=== PATIENT | female | born 1950 | race Caucasian/White ===

== ENCOUNTER 2016-05-14 15:46 | Emergency (ER) | payer MEDICAID ==
[2012-06-08 10:15] VITALS: BMI 20.2
== END 2016-05-14 18:22 | disposition home or self-care (01) ==
LOC: D.ER 15:46
DX: S53.402A Unspecified sprain of left elbow, initial encounter (principal); W01.0XXA Fall on same level from slipping, tripping and stumbling without subsequent striking against object, initial encounter; Y93.89 Activity, other specified; Y92.830 Public park as the place of occurrence of the external cause; I25.10 Atherosclerotic heart disease of native coronary artery without angina pectoris; E11.9 Type 2 diabetes mellitus without complications

== ENCOUNTER 2016-09-14 21:45 | Emergency (ER) | payer MEDICAID ==
[2012-06-08 10:15] VITALS: BMI 20.2
== END 2016-09-15 00:23 | disposition home or self-care (01) ==
LOC: D.ER 21:45
DX: R05 Cough (principal); J20.9 Acute bronchitis, unspecified; E11.9 Type 2 diabetes mellitus without complications; I25.10 Atherosclerotic heart disease of native coronary artery without angina pectoris

== ENCOUNTER 2017-01-05 19:30 | Emergency (ER) | payer MEDICAID ==
[2012-06-08 10:15] VITALS: BMI 20.2
== END 2017-01-05 21:30 | disposition home or self-care (01) ==
LOC: D.ER 19:30
DX: H10.31 Unspecified acute conjunctivitis, right eye (principal); E11.9 Type 2 diabetes mellitus without complications

== ENCOUNTER 2019-09-11 10:00 | Outpatient (CLI) | payer MEDICARE, MEDICAID ==
[2012-06-08 10:15] VITALS: BMI 20.2
== END 2019-09-11 11:00 | disposition home or self-care (01) ==
LOC: D.MAMMO 10:00
PROVIDERS: ATTEND Family Medicine
DX: Z12.31 Encounter for screening mammogram for malignant neoplasm of breast (principal)

== ENCOUNTER 2019-12-14 18:36 | Inpatient (IN) | payer MEDICARE, MEDICAID ==
[~2019-12-14] VITALS: Ht 149.9 cm; Wt 80.2 kg
--- NOTE | ~2019-12-14 | EC ---
PATIENT:KYRA TAFOYA DATE OF SERVICE: 12/14/19 SEX: F MEDICAL RECORD: [id number] DATE OF : [birth year] LOCATION:D.M2 D.213 AGE OF PATIENT: 69 ADMISSION DATE: 12/14/19 REFERRING PHYSICIAN: INTERPRETING PHYSICIAN: KAYCE CANALES MD ECHOCARDIOGRAM REPORT ECHO CHARGES 4 ECHO COMPLETE Date: 12/15/19 CLINICAL DIAGNOSIS: AFIB ECHOCARDIOGRAPHIC MEASUREMENTS (adult normal given) AC root (d.<3.7cm) 3.3 cm LV Septum d (<1.2 cm> 1.3 cm Valve Excursion 1.4 cm LV Septum (systole) 1.5 cm Left Atria (s.<4.0cm> 3.0 cm LVPW d(<1.2cm) 1.0 cm RV (d.<2.3cm) 3.4 cm LVPW (sytole) 1.4 cm LV diastole(<5.6CM) 4.2 cm MV E-F(>70mm/sec) cm LV systole 2.2 cm LVOT Diameter 1.6 cm MV exc.(>10mm) 1.0 cm Est.ejection fraction (50-75%) % DOPPLER: LVIT cm/sec A cm/sec E 153.0 cm/sec LA cm/sec RVSP 38 mmHg LVOT 80 cm/sec AOP1/2T m/s Asc. Ao 109 cm/sec RVOT 72 cm/sec RA cm/sec PA 99 cm/sec AV Gradient Peak 4.79 mmHg AV Mean 2.66 mmHg AV Area 1.5 cm MV Gradient Peak 9.35 mmHg MV Mean 3.21 mmHg MV Area cm COMMENTS: Grain Drier: 2 MADINA MCKINNEY Lean Facilitator: 3 Dr. Horta TAPE# PACS Pericardial Effusion N DATE OF SERVICE: 12/16/2019 Adequate 2D, color flow imaging, spectral Doppler, and M-Mode. Mild LVH. LV internal dimensions are normal. Wall motion normal. EF greater than or equal to 55%. Aortic valve is tricuspid. No evidence of stenosis by Doppler interrogation. Left atrium is normal at 3.0 cm. Mitral valve shows no prolapse. Mild MR. Right-sided chambers are grossly normal. Mild TR. TRANSINT:[id number] Voice Confirmation ID: [id number] DOCUMENT ID: [id number] ECHOCARDIOGRAM REPORT [id number] GLOBAL ENGINEERING MANAGER,KYRA CANALES,KAYCE Crockett MD CC: [id number] DICTATION DATE: 12/16/19 1009 LACE SEWER: 12/16/19 1135 ADM IN [place] [id number] [place] [id number]
--- NOTE | ~2019-12-14 | CN ---
PATIENT NAME:KYRA HERNANDEZ MEDICAL RECORD: [id number] : 54 LOCATION:D.Ju[place] D.2135 ADMIT DATE: 12/14/19 ACCOUNT: [id number] CONSULTING PHYSICIAN: KAYCE CANALES MD REFERRING PHYSICIAN: DEL BASURTO MD DATE OF CONSULTATION: 12/15/2019 HISTORY OF PRESENT ILLNESS: A 69-year-old female with a history of diabetes mellitus, hypertension, apparently noncompliant in the past ____ hemoglobin A1c, admitted with fatigue, tiredness, breathlessness, noted to be in AFib with RVR. She has responded nicely to Cardizem drip, attempted to convert post-pause. We are asked to see her concerning her cardiovascular status. PAST MEDICAL HISTORY: Includes: 1. History of hypertension. 2. Diabetes mellitus. 3. Obstructive pulmonary disease. ALLERGIES: PENICILLIN. MEDICATIONS: None currently. SOCIAL HISTORY: Nonsmoker, nondrinker. Takes care of her ADLs. REVIEW OF SYSTEMS: The patient reports easy bruising but reports no swollen glands. The patient reports no fever, no night sweats, no significant weight gain, no significant weight loss. No significant exercise tolerance. The patient reports no dry eyes, no irritation, no vision change. Patient reports no difficulty hearing and no ear pain. Patient reports no frequent nose bleeds or nose and sinus problems. Patient reports on arm pain on exertion. No shortness of breath while lying down. No history of heart murmur. Patient reports no cough, no wheezing or coughing up blood. Patient reports no abdominal pain, no vomiting. Normal appetite. No diarrhea and not vomiting blood. No nausea and no constipation. Patient reports no incontinence. No difficulty urinating. No hematuria. No increased frequency. Patient reports no muscle aches. No weakness, no arthralgias, no back pain. No swelling of the extremities. Patient reports no abnormal mole, no jaundice, no rashes. Reports no loss of consciousness. No weakness and no numbness. No seizures, dizziness, or headaches. The patient reports no depression, no sleep disturbance, feeling safe in a relationship and no alcohol abuse. Patient reports on fatigue. Reports no runny nose or sinus pressure. No itching, no hives, and no frequent sneezing. PHYSICAL EXAMINATION: GENERAL: Pleasant, in no acute distress, appears stated age. VITAL SIGNS: Blood pressure 118/68, pulse 72 and irregular. HEENT: Normocephalic, atraumatic. NECK: No JVD or bruit. HEART: Irregular, rate is controlled currently. II/ systolic ejection murmur. LUNGS: Fairly good air excursion. ABDOMEN: Soft, nontender. EXTREMITIES: Pulses well preserved, 2+. There is no edema. IMPRESSION: Atrial fibrillation with RVR. We will switch from Cardizem drip to CONSULT REPORT [id number] KYRA HERNANDEZ beta blockade at this point for rate control. Discussed in detail with Dr. Basurto. Given her history of noncompliance in the past, I do not think she is not an ideal candidate for anticoagulation. I discussed this in detail with Ms. Hernandez. Rate is controlled with beta blockade. No contraindication at discharge from my standpoint. TRANSINT:[id number] Voice Confirmation ID: [id number] DOCUMENT ID: [id number] KAYCE CANALES MD CC: [id number] DICTATION DATE: 12/15/19935 STEAM PRESSER: 12/15/19 1223 ADM IN [facility] [address] [id number]
[2019-12-14 19:09] LABS: BASOPHILS 0.1 % (0-2); EOSINOPHILS 0.2 % (0-7); HEMATOCRIT 41.6 % (36.0-48.0); HEMOGLOBIN 13.3 g/dL (12-16); IMMATURE GRANULOCYTES 0.3 % (0-5); LYMPHOCYTES 6.9 % (15-50); MCH 27.1 pg (26.0-34.0); MCV 84.9 fL (80.0-100.0); MONOCYTES 4.1 % (2-11); NEUTROPHILS 88.4 % (40-80); PLATELET COUNT 213 10x3/uL (130-400); RDW 13.4 % (11.5-14.5); WBC 11.1 10x3/uL (4.8-10.8)
[2019-12-14 19:18] LABS: INR 0.94 (0.85-1.17); PROTIME 12.6 SECONDS (11.6-15.0)
[2019-12-14 19:34] LABS: BILIRUBIN NEGATIVE (NEGATIVE); KETONE SMALL mg/dL (NEGATIVE); NITRITE NEGATIVE (NEGATIVE); UROBILINOGEN NORMAL mg/dL (< 2)
[2019-12-14 19:35] LABS: CALC OSMOLALITY 282 mosm/kg (275-300); CALCIUM 9.5 mg/dL (8.5-10.1); CARBON DIOXIDE 28.8 mmol/L (21.0-32.0); CHLORIDE - SERUM 98 mmol/L (98-107); CREATININE - SERUM 1.1 mg/dL (0.6-1.3); POTASSIUM - SERUM 4.6 mmol/L (3.5-5.1); SODIUM 135 mmol/L (136-145); UREA NITROGEN 21 mg/dL (7-18); eGFR NON AFRICAN AMERICAN 52 mL/min (90-120)
[2019-12-14 19:37] LABS: GLUCOSE 286 mg/dL (74-106)
[2019-12-14 19:41] LABS: BACTERIA FEW /HPF (NONE SEEN); WHITE CELLS - URINE 0-5 HPF (0-4)
[2019-12-14 19:51] LABS: ALBUMIN 3.8 g/dL (3.4-5.0); ALKALINE PHOSPHATASE 159 U/L (30-120); ALT (SGPT) 27 U/L (10-68); BILIRUBIN - TOTAL 0.31 mg/dL (0.2-1.3); CKMB 1.3 U/L (0.0-3.6); CREATINE KINASE 57 UL (21-215); PROTEIN - SERUM 7.7 g/dL (6.4-8.2); TROPONIN-I < 0.017 ng/mL (0.000-0.060)
[2019-12-14 20:14] VITALS: BP 119/73
[2019-12-14 20:32] LABS: UDS - AMPHET NEGATIVE QUAL (NEGATIVE); UDS - BARB NEGATIVE QUAL (NEGATIVE); UDS - BENZO NEGATIVE QUAL (NEGATIVE); UDS - COCAINE NEGATIVE QUAL (NEGATIVE); UDS - OPIATE NEGATIVE QUAL (NEGATIVE); UDS - PCP NEGATIVE QUAL (NEGATIVE); UDS - THC NEGATIVE QUAL (NEGATIVE)
--- NOTE | 2019-12-14 20:56 | NUR ---
DILTIAZEM INCREASED FROM 10MG/HR TO 15MG/HR PER ORDER.
[2019-12-14 21:06] VITALS: BP 156/81
[2019-12-14 21:39] VITALS: BP 96/57
--- NOTE | 2019-12-14 22:46 | NUR ---
PT ARRIVED TO ROOM. CONFUSED, POOR HISTORIAN. HR 90'S CAF. CALL LIGHT IN REACH.
[2019-12-14 22:50] VITALS: BP 125/74
[2019-12-15 00:02] VITALS: BP 111/58
[2019-12-15 00:11] VITALS: BP 125/74
[2019-12-15 04:37] VITALS: BP 124/60
[2019-12-15 05:02] LABS: BASOPHILS 0.1 % (0-2); EOSINOPHILS 0.1 % (0-7); HEMOGLOBIN 12.3 g/dL (12-16); IMMATURE GRANULOCYTES 0.8 % (0-5); LYMPHOCYTES 16.9 % (15-50); MCH 26.2 pg (26.0-34.0); MCHC 30.8 g/dL (31.0-37.0); MCV 85.3 fL (80.0-100.0); MEAN PLATELET VOLUME 9.3 fL (7.4-10.4); MONOCYTES 7.8 % (2-11); NEUTROPHILS 74.3 % (40-80); RBC 4.69 10x6/uL (4.00-5.40); RDW 13.4 % (11.5-14.5); WBC 9.1 10x3/uL (4.8-10.8)
[2019-12-15 05:07] LABS: PLATELET COUNT 279 10x3/uL (130-400)
[2019-12-15 05:41] LABS: ALBUMIN 3.2 g/dL (3.4-5.0); ALKALINE PHOSPHATASE 123 U/L (30-120); ALT (SGPT) 22 U/L (10-68); BILIRUBIN - TOTAL 0.24 mg/dL (0.2-1.3); CALCIUM 9.2 mg/dL (8.5-10.1); CARBON DIOXIDE 29.2 mmol/L (21.0-32.0); CHLORIDE - SERUM 102 mmol/L (98-107); CKMB 1.6 U/L (0.0-3.6); CREATINE KINASE 45 UL (21-215); POTASSIUM - SERUM 4.4 mmol/L (3.5-5.1); PROTEIN - SERUM 7.1 g/dL (6.4-8.2); SODIUM 140 mmol/L (136-145); T4 THYROXIN - FREE 1.11 ng/dL (0.76-1.46); THYROID STIMULATING HORMONE 1.72 uIU/mL (0.36-3.74); UREA NITROGEN 24 mg/dL (7-18)
[2019-12-15 05:42] LABS: CALC OSMOLALITY 284 mosm/kg (275-300); CREATININE - SERUM 1.4 mg/dL (0.6-1.3); GLUCOSE 127 mg/dL (74-106); TROPONIN-I < 0.017 ng/mL (0.000-0.060); eGFR NON AFRICAN AMERICAN 40 mL/min (90-120)
--- NOTE | 2019-12-15 07:20 | NUR ---
RECIEVE REPORT. RESTING IN BED WITH EYES CLOSED. CONTROLLED AFIB 64 ON TELEMETRY. CARDIZEM DRIP INFUSING ORDERED. VITALS STABLE. NO SIGNS OF DISTRESS. CONTINUE PLAN OF CARE AND SAFETY PRECAUTIONS.
[2019-12-15 08:02] VITALS: BP 118/68
--- NOTE | 2019-12-15 08:07 | NUR ---
ALERT AND ORIENTED X4. SITTING UP IN BED. CONTROLLED AFIB 54 ON TELEMETRY WITH 4.8 SECOND PAUSE. NOTIFY LEYLA. DRAGAN REESE PER TrungLEYLA VIA TELEPHONE.
--- NOTE | 2019-12-15 09:48 | HP ---
PATIENT: KYRA TAFOYA MEDICAL RECORD: [id number] ACCOUNT: [id number] LOCATION:[address] : [birth year] ADMISSION DATE: 12/14/19 PCP: ALL MARTE MD HISTORY AND PHYSICAL EXAMINATION REASON FOR ADMISSION: Fatigue and fall. HISTORY OF PRESENT ILLNESS: The patient is a 69-year-old female whose family brings her in to see because she has been fatigued for the last several days. She had apparently fallen once or twice in the previous days. She complained of some neck pain and shoulder pain. Denies any nausea or vomiting, has had a cough as well for the last 24 hours. No documented fever, change in taste or smell. She came to the Emergency Room for these reasons. She was found in the ED to have an irregular heart rate, pulse over 130 and irregular. This is apparently a new rhythm for her. She denies history of hypothyroidism. PAST MEDICAL HISTORY: She has had postmenopausal vaginal bleeding with negative endometrial biopsy, COPD, dementia, depression, diabetes mellitus, uncontrolled. She refuses meds. PAST SURGICAL HISTORY: She had cholecystectomy and she had a bowel resection with colostomy takedown and repair. FAMILY HISTORY: Unknown. SOCIAL HISTORY: Remote smoker, does not drink alcohol. MEDICATIONS: To which she is noncompliant about Formin 500 mg b.i.d., lisinopril 5 mg daily. REVIEW OF SYSTEMS: CONSTITUTIONAL: Has been fatigued for 2-3 days without fever. HEENT: No recent visual change, sinus congestion, sore throat or loss of sense of smell or taste. RESPIRATORY: She has had dry cough for the last 2-3 days. Denies hemoptysis or shortness of breath. CARDIAC: Chest pain. GASTROINTESTINAL: She has had no nausea, vomiting, change in stools or blood per rectum. GENITOURINARY: Mild incontinence, no dysuria. GYNECOLOGIC: No vaginal bleeding recently. ENDOCRINE: Denies polyuria, polydipsia, heat or cold intolerance. NEUROLOGIC: Questionable history of stroke. No history of seizures. She has had some memory loss she relates. INTEGUMENT: No rash or itching. PSYCHIATRIC: Denies depress mood. PHYSICAL EXAMINATION: VITAL SIGNS: Heart is 120 and irregular, temperature 99 degrees Fahrenheit orally, respiratory rate 18, blood pressure 136/81 with a sat of 94% on room air. GENERAL: The patient appears older than stated age and she appears fatigued. HEENT: Eyes are clear. Oropharynx unremarkable. NECK: No bruits or masses. CHEST: She has some tenderness in the left trapezius to deep palpation. No HISTORY AND PHYSICAL [id number] KYRA TAFOYA bruising noted. Chest wall is nontender. HEART: Irregular rate without gallop. LUNGS: Clear throughout. ABDOMEN: Soft, obese, and nontender. PELVIC: Deferred. EXTREMITIES: A 1+ bipedal and pretibial edema of the knees bilaterally. SKIN: No bruising appreciated, no icterus. NEUROLOGIC: The patient is oriented to person and place, but not time. She has no obvious motor or sensory deficits. I did not ambulate the patient. LABORATORY DATA: Shows a white count of 11,000 with left shift, H&H is 13 and 41.6 respectively. Sodium is 135, BUN and creatinine are 21 and 1.0, glucose is 286 nonfasting. Lactic acid is 1.9. Liver functions normal. Alkaline phosphatase 159. Cardiac enzymes are negative. INR 0.94. Urine drug screen is negative. Urinalysis shows 3+ protein, small ketones, 5-10 epithelial cells, SARS-COVID RNA is currently pending. IMAGING: Chest x-ray shows no cardiopulmonary disease. CT of the head shows nasal sinuses demonstrating extensive mucosal thickening throughout the maxillary and ethmoid sinuses, but no acute intracranial pathology. Cervical spine CT, no evidence of fracture. The disc spaces are well maintained. There is an indeterminate 2 cm thyroid nodule on the right. EKG shows atrial fibrillation with RVR. ASSESSMENT: 1. New onset atrial fibrillation with rapid ventricular response. 2. Diabetes mellitus, poorly controlled due to noncompliance. 3. Dementia. 4. Thyroid nodule. 5. Azotemia. PLAN: The patient was started on Cardizem drip in 80 and right now is in the 90s. We will check serial cardiac enzymes, thyroid functions, thyroid ultrasound, isolate, COVID-19, rule out. Cardiology will see the patient in the morning. TRANSINT:[id number] Voice Confirmation ID: [id number] DOCUMENT ID: [id number] DEL CORONA MD at 0948 CC: [id number] DICTATION DATE: 12/14/192321 WASHING MACHINE REPAIRER: 12/15/19 0028 ADM IN [facility] [address] [id number]
--- NOTE | 2019-12-15 17:16 | NUR ---
ALERT AND ORIENTED. ASSIST UP TO CHAIR. LINEN CHANGE COMPLETE. SINUS RYTHM 85 ON TELEMETRY. COVID NEGATIVE. ISOLATION REMOVED. CONTINUE PLAN OF CARE AND SAFETY PRECAUTIONS.
--- NOTE | 2019-12-15 19:00 | NUR ---
REPORT RECEIVED, PT CARE ASSUMED. INTRODUCED SELF AND WROTE NAME ON BOARD. PT SITTING UP IN BED, WATCHING TV, AAOX4. X1 ASSIST TO BATHROOM AND BACK TO BED. REQUESTING CLEAN GOWN, PROVIDED. DENIES ANY OTHER NEEDS AT THIS TIME. BED IN LOWEST, SRX2, CALL LIGHT WITHIN REACH. WILL CTM.
[2019-12-15 20:00] VITALS: BP 170/66
[2019-12-16] VITALS: BP 144/68
[2019-12-16 05:29] LABS: BASOPHILS 0.2 % (0-2); EOSINOPHILS 0.7 % (0-7); HEMATOCRIT 37.2 % (36.0-48.0); HEMOGLOBIN 11.3 g/dL (12-16); IMMATURE GRANULOCYTES 0.2 % (0-5); LYMPHOCYTES 19.8 % (15-50); MCH 26.5 pg (26.0-34.0); MCHC 30.4 g/dL (31.0-37.0); MEAN PLATELET VOLUME 9.2 fL (7.4-10.4); NEUTROPHILS 71.1 % (40-80); RBC 4.26 10x6/uL (4.00-5.40); RDW 13.6 % (11.5-14.5)
[2019-12-16 05:53] LABS: ANION GAP 8.9 mmol/L (8-16); CARBON DIOXIDE 28.1 mmol/L (21.0-32.0); CREATININE - SERUM 1.3 mg/dL (0.6-1.3); MCV 87.3 fL (80.0-100.0); PLATELET COUNT 217 10x3/uL (130-400); WBC 5.5 10x3/uL (4.8-10.8)
--- NOTE | 2019-12-16 07:20 | NUR ---
RECIEVE REPORT. ALERT AND ORIENTED X3. ASSIST UP TO RESTROOM AND BACK TO BED. SINUS RYTHM ON TELEMETRY. DENIES ANY OTHER NEEDS. CONTINUE PLAN OF CARE AND SAFETY PRECAUTIONS.
[2019-12-16 10:15] VITALS: BP 110/46
[2019-12-16 13:05] VITALS: BP 125/50
[2019-12-16] MEDS ORDERED: LOPRESSOR25 MG PO (13:39)
[2019-12-16 14:10] VITALS: Ht 149.9 cm; Wt 80.2 kg
--- NOTE | 2019-12-16 16:02 | MORECARE ---
CASE MANAGEMENT DISCHARGE SUMMARY PATIENT: KYRA TAFOYA UNIT: [id number] ADM DATE: 12/14/19 AGE: 69 : 52 SEX: F ROOM/BED: D.5879 AUTHOR: MELISSA WALKER PHYSICIAN: REFERRING PHYSICIAN: DEL CORONA MD DATE OF SERVICE: 12/16/19 Discharge Plan Patient Name: KYRA TAFOYA Facility: [facility]:[place] : 1950 Planned Disposition: Home Anticipated Discharge Date: Discharge Date: Expected LOS: 0 Initial Reviewer: [email or web address] Initial Review Date: 12/15/2019 Generated: 12/16/19 5:02 pm DCPIA - Discharge Planning Initial Assessment Updated by [email or web address]: Radha Pendleton on 12/16/19 4:00 pm * Is the patient Alert and Oriented? Yes * How many steps to enter\exit or inside your home? 0/0 * PCP ROSANNA * Pharmacy [facility] * Preadmission Environment Home with Family * ADLs Independent * Equipment None * List name and contact numbers for known caregivers / representatives who currently or will assist patient after discharge: SOURAV CARRIZALES [phone] * Verbal permission to speak to the caregivers and representatives has been obtained from the patient. Yes * Community resources currently utilized None * Additional services required to return to the preadmission environment? Yes * Can the patient safely return to the preadmission environment? Yes * Has this patient been hospitalized within the prior 30 days at any hospital? No External Providers External Provider: Cristobal Next Contact Date: Service Request Date: Service Type: Resolution: Reviewer: Comments: Coverage Notice Reviewer: [email or web address] Nikiat Pendleton Notice Issued Date-Time: 12/16/2019 14:15 Notice Type: Patient Choice Letter Notice Delivered To: Patient Relationship to Patient: Grain Grader Name: Delivery Method: HAND - Hand Delivered Roxana Days: Prior Verbal Notification: Recipient Understood Notice: Yes Recipient Signature: Yes Med Rec Note Co-signed by Attending: Coverage Notice Comment: DECLINED HH/REHAB, DME AUTHOURIZTION FOR [facility] FOR O2 Reviewer: [email or web address] - Radha Pendleton Notice Issued Date-Time: 12/16/2019 14:15 Notice Type: IM Discharge Notice Notice Delivered To: Patient Relationship to Patient: Grain Grader Name: Delivery Method: HAND - Hand Delivered Roxana Days: Prior Verbal Notification: Recipient Understood Notice: Yes Recipient Signature: Yes Med Rec Note Co-signed by Attending: Coverage Notice Comment: DC IMM DELIVERED Patient Name: KYRA TAFOYA Page 61500 at 1602 All edits/amendments must be made on the electronic document DICTATION DATE: 12/16/191601 COMPUTER HARDWARE DESIGNER: MARTIN 12/16/19 160 RPT#: [id number] DC DATE: STATUS: ADM IN [facility] [address] [place] [address] END OF REPORT
--- NOTE | 2019-12-16 16:11 | MORECARE ---
CASE MANAGEMENT DISCHARGE SUMMARY PATIENT: KYRA HERNANDEZ UNIT: [id number] ADM DATE: 12/14/19 AGE: 69 : 52 SEX: F ROOM/BED: D.4940 AUTHOR: MELISSA WALKER PHYSICIAN: REFERRING PHYSICIAN: DEL CORONA MD DATE OF SERVICE: 12/16/19 Discharge Plan Patient Name: KYRA HERNANDEZ Facility: [facility]:[place] : 1950 Planned Disposition: Home Anticipated Discharge Date: Discharge Date: Expected LOS: 0 Initial Reviewer: [email or web address] Initial Review Date: 12/15/2019 Generated: 12/16/19 5:11 pm DCP- Discharge Planning Updated by [email or web address]: Radha Pendleton on 12/16/19 3:[address] Patient Name: KYRA HERNANDEZ Admission Status: ER Accout number: [id number] Admission Date: 12-14-2019 : 1950 Admission Diagnosis: Attending: DEL CORONA Current LOS: 2 Anticipated DC Date: Planned Disposition: Home Primary Insurance: [facility] MEDICARE SOLUTIONS Discharge Planning Comments: CM met with patient to complete initial dc planning assessment. CM educated patient on the CM role and verbal consent given by patient to complete assessment. CM verified patient's address, phone number, and emergency contact phone numbers. Patient lives at home with her son Caleb ([phone]) At discharge the patient plans to return and feels this is a safe discharge. CM discussed availability of home health, rehab services, and medical equipment. Patient states she falls a lot, but refuses to have a walker, cane, or any type of ambulation aids. Ms Hernandez also refused to have home health services. She states if I set her up with that she will not allow them into her home, and will kick them out. Cm spoke with her son Caleb about the recommendations for a walker, and home health. Caleb states he will not allow his mother to go into a home, or have paid strangers in his house. Caleb states that is in agreement for someone to sit with her while he is at work, but he can not afford to pay someone. CM provided Caleb with [facility] to assist him in a private free CG. The pt is on 2 liters o2 and testing was conducted that reveals she needs home and portable oxygen. Per request CM called Timothy at [facility] at [phone] about oxygen needs. A tank will be provided to the patient room. Patient denied known discharge needs at this time. Transportation provider at discharge will be Caleb. CM will continue to follow and will assist as needed with dc plans/needs. Passenger Barge Master: Radha Pendleton MSN,RN,CM DCPIA - Discharge Planning Initial Assessment Updated by [email or web address]: Radha Pendleton on 12/16/19 4:00 pm * Is the patient Alert and Oriented? Yes * How many steps to enter\exit or inside your home? 0/0 * PCP ROSANNA * [facility] * Preadmission Environment Home with Family * ADLs Independent * Equipment None * List name and contact numbers for known caregivers / representatives who currently or will assist patient after discharge: CALEB CARRIZALES [phone] * Verbal permission to speak to the caregivers and representatives has been obtained from the patient. Yes * Community resources currently utilized None * Additional services required to return to the preadmission environment? Yes * Can the patient safely return to the preadmission environment? Yes * Has this patient been hospitalized within the prior 30 days at any hospital? No Coverage Notice Reviewer: [email or web address] Nikita Pendleton Notice Issued Date-Time: 12/16/2019 14:15 Notice Type: Patient Choice Letter Notice Delivered To: Patient Relationship to Patient: Security And Privacy Consultant Name: Delivery Method: HAND - Hand Delivered Roxana Days: Prior Verbal Notification: Recipient Understood Notice: Yes Recipient Signature: Yes Med Rec Note Co-signed by Attending: Coverage Notice Comment: DECLINED HH/REHAB, DME AUTHOURIZTION FOR [facility] FOR O2 Reviewer: [id number] Nikita Pendleton Notice Issued Date-Time: 12/16/2019 14:15 Notice Type: IM Discharge Notice Notice Delivered To: Patient Relationship to Patient: Security And Privacy Consultant Name: Delivery Method: HAND - Hand Delivered Roxana Days: Prior Verbal Notification: Recipient Understood Notice: Yes Recipient Signature: Yes Med Rec Note Co-signed by Attending: Coverage Notice Comment: DC IMM DELIVERED Last DP export: 12/16/19 3:02 p Patient Name: KYRA HERNANDEZ Page [id number] at 1611 All edits/amendments must be made on the electronic document DICTATION DATE: 12/16/19 161 MISSILE CONTROL PILOT: MARTIN 12/16/191610 RPT#: [id number] DC DATE: STATUS: ADM IN [facility] [address] [place] [address] END OF REPORT
--- NOTE | 2019-12-16 16:17 | NUR ---
ALERT AND ORIENTED X4. SITTING UP IN BED. GARCÍA ARRIVES DROPPING OFF PORTABLE OXYGEN. NOTIFY SOURAV (SON) FOR RIDE. NO IV.
--- NOTE | 2019-12-16 16:46 | NUR ---
ALERT AND ORIENTED X4. SITTING UP IN THE BED. DISCHARGE INSTRUCTIONS GIVEN VERBALLY AND WRITTEN. DISCHARGE PAPERS SIGNED ON CHART. WAITING FOR RIDE TO ARRIVE.
--- NOTE | 2019-12-17 09:09 | MORECARE ---
CASE MANAGEMENT DISCHARGE SUMMARY PATIENT: KYRA HERNANDEZ UNIT: [id number] ADM DATE: 12/14/19 AGE: 69 : 52 SEX: F ROOM/BED: D.7052 AUTHOR: MELISSA WALKER PHYSICIAN: REFERRING PHYSICIAN: DEL CORONA MD DATE OF SERVICE: 12/17/19 Discharge Plan Patient Name: KYRA HERNANDEZ Facility: [facility]:[place] : 1950 Planned Disposition: Home Anticipated Discharge Date: Discharge Date: 12/16/2019 Expected LOS: 0 Initial Reviewer: [email or web address] Initial Review Date: 12/15/2019 Generated: 12/17/19 10:08 am DCP- Discharge Planning Updated by [email or web address]: Radha Pendleton on 12/16/19 3:[address] Patient Name: KYRA HERNANDEZ Admission Status: ER Accout number: [id number] Admission Date: 12-14-2019 : 1950 Admission Diagnosis: Attending: DEL CORONA Current LOS: 2 Anticipated DC Date: Planned Disposition: Home Primary Insurance: [facility] MEDICARE SOLUTIONS Discharge Planning Comments: CM met with patient to complete initial dc planning assessment. CM educated patient on the CM role and verbal consent given by patient to complete assessment. CM verified patient's address, phone number, and emergency contact phone numbers. Patient lives at home with her son Caleb ([phone]) At discharge the patient plans to return and feels this is a safe discharge. CM discussed availability of home health, rehab services, and medical equipment. Patient states she falls a lot, but refuses to have a walker, cane, or any type of ambulation aids. Ms Hernandez also refused to have home health services. She states if I set her up with that she will not allow them into her home, and will kick them out. Cm spoke with her son Caleb about the recommendations for a walker, and home health. Caleb states he will not allow his mother to go into a home, or have paid strangers in his house. Caleb states that is in agreement for someone to sit with her while he is at work, but he can not afford to pay someone. CM provided Caleb with [employer] to assist him in a private free CG. The pt is on 2 liters o2 and testing was conducted that reveals she needs home and portable oxygen. Per request CM called Timothy at [facility] at [phone] about oxygen needs. A tank will be provided to the patient room. Patient denied known discharge needs at this time. Transportation provider at discharge will be Caleb. CM will continue to follow and will assist as needed with dc plans/needs. Computer Technology Teacher: Radha Pendleton MSN,RN,CM DCPIA - Discharge Planning Initial Assessment Updated by [email or web address]: Radha Pendleton on 12/16/19 4:00 pm * Is the patient Alert and Oriented? Yes * How many steps to enter\exit or inside your home? 0/0 * PCP ROSANNA * [facility] * Preadmission Environment Home with Family * ADLs Independent * Equipment None * List name and contact numbers for known caregivers / representatives who currently or will assist patient after discharge: CALEB SON [phone] * Verbal permission to speak to the caregivers and representatives has been obtained from the patient. Yes * Community resources currently utilized None * Additional services required to return to the preadmission environment? Yes * Can the patient safely return to the preadmission environment? Yes * Has this patient been hospitalized within the prior 30 days at any hospital? No Coverage Notice Reviewer: [email or web address] Nikita Pendleton Notice Issued Date-Time: 12/16/2019 14:15 Notice Type: Patient Choice Letter Notice Delivered To: Patient Relationship to Patient: Technical Producer Name: Delivery Method: HAND - Hand Delivered Roxana Days: Prior Verbal Notification: Recipient Understood Notice: Yes Recipient Signature: Yes Med Rec Note Co-signed by Attending: Coverage Notice Comment: DECLINED HH/REHAB, DME AUTHOURIZTION FOR [facility] FOR O2 Reviewer: [email or web address] Nikita Pendleton Notice Issued Date-Time: 12/16/2019 14:15 Notice Type: IM Discharge Notice Notice Delivered To: Patient Relationship to Patient: Technical Producer Name: Delivery Method: HAND - Hand Delivered Roxana Days: Prior Verbal Notification: Recipient Understood Notice: Yes Recipient Signature: Yes Med Rec Note Co-signed by Attending: Coverage Notice Comment: DC IMM DELIVERED Last DP export: 12/16/19 3:11 p Patient Name: KYRA HERNANDEZ Page [phone] at 0909 All edits/amendments must be made on the electronic document DICTATION DATE: 12/17/19907 CURRICULUM COACH: MARTIN 12/17/19907 RPT#: [id number] DC DATE:12/16/19 STATUS: DIS IN [facility] [address] [place] [address] END OF REPORT
== END 2019-12-16 18:05 | disposition home or self-care (01) | DRG 310 ==
LOC: D.ER 18:36 → D.M2 20:49
PROVIDERS: Family Medicine; ADMIT Family Medicine; ATTEND Family Medicine
DX: I48.20 Chronic atrial fibrillation, unspecified (principal); E04.1 Nontoxic single thyroid nodule; F03.90 Unspecified dementia, unspecified severity, without behavioral disturbance, psychotic disturbance, mood disturbance, and anxiety; E11.9 Type 2 diabetes mellitus without complications; J40 Bronchitis, not specified as acute or chronic; M54.2 Cervicalgia; J44.9 Chronic obstructive pulmonary disease, unspecified; F32.9 Major depressive disorder, single episode, unspecified; W19.XXXA Unspecified fall, initial encounter; R00.0 Tachycardia, unspecified; S00.01XA Abrasion of scalp, initial encounter; R79.89 Other specified abnormal findings of blood chemistry; Z91.14 Patient's other noncompliance with medication regimen; Z86.73 Personal history of transient ischemic attack (TIA), and cerebral infarction without residual deficits

== ENCOUNTER → 2020-01-06 10:02 | Outpatient (CLI) | payer MEDICARE, MEDICAID ==
[2019-12-16 14:10] VITALS: BMI 35.7
[~2020-01-06 10:02] MED LIST: LOPRESSOR25 MG PO
== END | disposition home or self-care (01) ==
LOC: D.NM 10:02
PROVIDERS: ATTEND Family Medicine
DX: E04.1 Nontoxic single thyroid nodule (principal)

== ENCOUNTER 2020-09-29 19:07 | Emergency (ER) | payer MEDICARE, MEDICAID ==
[~2020-09-29] VITALS: Ht 149.9 cm; Wt 90.9 kg
[2020-09-29 19:16] VITALS: BP 135/66; Ht 149.9 cm; Wt 90.9 kg
[2020-09-29] MEDS ORDERED: LISINOPRIL5 MG PO (19:21)
[2020-09-29] MEDS ORDERED: GLUCOPHAGE500 MG PO (19:22)
[2020-09-29 19:51] LABS: BASOPHILS 0.4 % (0-2); EOSINOPHILS 0.8 % (0-7); HEMATOCRIT 39.4 % (36.0-48.0); HEMOGLOBIN 12.9 g/dL (12-16); MCH 27.1 pg (26.0-34.0); MCHC 32.7 g/dL (31.0-37.0); MCV 82.8 fL (80.0-100.0); MEAN PLATELET VOLUME 7.4 fL (7.4-10.4); MONOCYTES 7.7 % (2-11); NEUTROPHILS 76.1 % (40-80); PLATELET COUNT 235 10x3/uL (130-400); RBC 4.76 10x6/uL (4.00-5.40); RDW 14.2 % (11.5-14.5); WBC 8.5 10x3/uL (4.8-10.8)
[2020-09-29 20:03] LABS: CALC OSMOLALITY 287 mosm/kg (275-300); CARBON DIOXIDE 26.8 mmol/L (21.0-32.0); CHLORIDE - SERUM 106 mmol/L (98-107); CREATININE - SERUM 1.3 mg/dL (0.6-1.3); GLUCOSE 166 mg/dL (74-106); POTASSIUM - SERUM 4.3 mmol/L (3.5-5.1); SODIUM 140 mmol/L (136-145); UREA NITROGEN 26 mg/dL (7-18); eGFR NON AFRICAN AMERICAN 43 mL/min (90-120)
[2020-09-29 20:18] LABS: ALBUMIN 3.9 g/dL (3.4-5.0); ALKALINE PHOSPHATASE 148 U/L (30-120); ALT (SGPT) 19 U/L (10-68); BILIRUBIN - TOTAL 0.35 mg/dL (0.2-1.3); CKMB 1.1 U/L (0.0-3.6); CREATINE KINASE 69 UL (21-215); PROTEIN - SERUM 7.8 g/dL (6.4-8.2)
[2020-09-29 20:23] LABS: TROPONIN-I < 0.017 ng/mL (0.000-0.060)
== END 2020-09-30 03:02 | disposition left against medical advice (07) ==
LOC: D.ER 19:07
PROVIDERS: Family Medicine
DX: R07.9 Chest pain, unspecified (principal)